=== PATIENT | female | born 1970 | race Caucasian/White ===

== ENCOUNTER → 2022-01-03 10:55 | Outpatient (CLI) | payer OTHER, SELFPAY ==
[2022-01-03 12:30] LABS: Influenza A - CEPHEID Flu A NEGATIVE (NEGATIVE); Influenza B - CEPHEID Flu B NEGATIVE (NEGATIVE)
== END ==
PROVIDERS: Visit Provider Physician Assistant
DX: R50.9 Fever, unspecified (principal); R05.9 Cough, unspecified
CPT/HCPCS: 87502

== ENCOUNTER 2022-01-04 21:53 | Emergency (ER) | payer OTHER, SELFPAY ==
[2022-01-04 22:25] VITALS: BP 136/60; PULSE 73; RESP 16; TEMP 37.2; O2SAT 65; BMI 42.0
--- NOTE | 2022-01-05 00:26 | ED.SKABFB ---
HPI - Skin/Abscess/Foreign Bdy General Chief complaint: Skin/Abscess/Foreign Body Stated complaint: thinks she has a tick in her rt arm Time Seen by Provider: 01/05/22 00:18 Source: patient Mode of arrival: Ambulatory Limitations: no limitations History of Present Illness HPI narrative: Patient here for evaluation of a possible tick on her right forearm. was able to put a Band-Aid over the skin and remove. She brought it with her. In addition, in the past month she has had spotty lesions on her forearms. Has not seen family doctor or clinical faculty for this. Related Data Previous Rx's Medication Instructions Recorded benzonatate 200 mg capsule 200 mg PO BID PRN cough 7 days #14 01/03/22 caps Allergies Allergy/AdvReac Type Severity Reaction Status Date / Time meperidine [From Demerol] Allergy Mild Hallucinati Verified 01/03/22 10:32 ng Review of Systems Review of Systems Narrative: GENERAL: Denies chills, fatigue, malaise, fever, sweats. HEENT: Denies sinus pain, ear pain, sore throat RESPIRATORY: Denies dyspnea, cough CARDIOVASCULAR: Denies chest pain, palpitations GASTROINTESTINAL: Denies nausea, vomiting, abdominal pain : Denies dysuria, frequency, hematuria MUSCULOSKELETAL: denies muscle or bony pain SKIN: Denies rash, positive for foreign body and skin lesions NEUROLOGIC: Denies weakness, numbness ROS Unobtainable: All systems reviewed & are unremarkable except as noted in HPI and below Patient History Social History Smoking Status: Never smoker Smoking Status: Never smoker Substance Use Type: does not use Exam Narrative Exam Narrative: GENERAL: in no distress, not toxic not dyspneic HEAD: Normocephalic. EXTREMITIES: No gross deformities. BACK: No flank tenderness. NEURO: AOx4. SKIN: Warm and dry, scattered small punctate ulcerations of the skin on the forearms. It is dry. No oozing. No surrounding erythema. The small punctate item that was removed from the skin with Band-Aid from was examined. Used forceps and scissors to examine item. It is a small pebble. It is hardened. It is not a tick. It is not a scab. PSYCH: Not anxious, is cooperative Initial Vital Signs Initial Vital Signs: Vital Signs Temperature 98.9 F 01/04/22 22:25 Pulse Rate 73 01/04/22 22:25 Respiratory Rate 16 01/04/22 22:25 Blood Pressure 136/60 01/04/22 22:25 Pulse Oximetry 65 L 01/04/22 22:25 Oxygen Delivery Method 01/04/22 22:25 Course Course Course Narrative: No new issues during course of stay Reevaluation(s) Reevaluation #1: I reviewed results with patient and . This is a small pebble that was picked off the skin with the Band-Aid. Reviewed with patient needs to follow-up with dermatology regarding the skin lesions. Patient is in no distress. No blood work indicated this time. No prescriptions indicated this time. Vital Signs Vital signs: Vital Signs - 8 hr 01/04/22 22:25 01/05/22 00:33 Temperature 98.9 F Pulse Rate 73 78 Respiratory Rate 16 16 Blood Pressure 136/60 138/77 Pulse Oximetry 65 L 97 Oxygen Delivery Method Room Air Room Air MDM - Skin/Abscess/Foreign Bdy Differential Diagnosis Differential diagnosis: Likely other (Skin scabs/foreign body/tick) MDM Narrative Medical decision making narrative: Appropriate for discharge home. Examination item that was removed off the skin is a small pebble. Referral given for patient to see family doctor and to get referral for Dermatology regarding the skin lesions that have been there for over a month. No blood worker prescriptions indicated. Return precautions reviewed with patient. Not toxic at discharge Discharge Plan Departure Patient Disposition: Home Clinical Impression: Foreign body of skin of right forearm Instructions: DI for Rash Activity Restrictions/Additional Instructions: See family doctor in a week for re-evaluation and referral for Dermatology regarding skin lesions you are experiencing. Do not pick at the skin. Call provided primary care referral phone number to establish family doctor. Call [phone]. Return if worsening questions or concerns Prescriptions: No Action benzonatate 200 mg capsule 200 mg PO BID PRN (Reason: cough) 7 Days Qty: 14 0RF Visit Report Forms: Patient Portal/API
[2022-01-05 00:33] VITALS: BP 138/77; PULSE 78; RESP 16; O2SAT 97
== END 2022-01-05 00:34 | disposition home or self-care (01) ==
PROVIDERS: Emergency Provider Emergency Medicine
DX: S50.851A Superficial foreign body of right forearm, initial encounter (principal)
CPT/HCPCS: 99281

== ENCOUNTER 2022-09-01 11:42 | Emergency (ER) | payer OTHER, SELFPAY ==
[2022-09-01 11:45] VITALS: BP 169/73; PULSE 90; RESP 16; TEMP 36.6; O2SAT 98; BMI 40.7
[2022-09-01] MEDS: TET,DIPH,PERTUSS(ACELL),VAC/PF 0.5 ML SYRINGE IM (12:35)
[2022-09-01] MEDS: KETOROLAC 10 MG TABLET PO (13:02)
[2022-09-01] MEDS: LIDOCAINE 2% INJ SDV 5ML 5 ML INJ (13:03)
[2022-09-01] MEDS: ACETAMINOPHEN 325 MG TABLET 975 MG PO (13:03)
[2022-09-01] MEDS: PANTOPRAZOLE DR 20 MG TABLET PO (13:05)
--- NOTE | 2022-09-01 13:11 | ED_ITS ---
HPI - Wound/Laceration <SANJEEV Arambula - Last Filed: 09/01/22 14:35> General Chief Complaint: Wound/Laceration Stated Complaint: sharp piece of metal fell on wrist/ bleeding Time Seen by Provider: 09/01/22 12:07 Source: patient Mode of arrival: Ambulatory History of Present Illness HPI narrative: This is a 52-year-old female presents to the emergency department with her after she bumped a heavy sink a were installing and fell down onto her left wrist on the volar aspect. She has 2 small skin injuries, 1 is a 0.5 avulsion flap and is superficial, without bleeding with a small abrasion, the other is approximately 1 cm laceration over the medial volar wrist. She does not remember when her last tetanus was, denies any profuse bleeding, has it wrapped up but was very anxious about the injury. Related Data Previous Rx's Medication Instructions Recorded hydrocodone 5 mg-acetaminophen 325 1 tab PO TID PRN pain #10 tabs 09/01/22 mg tablet mupirocin 2 % topical ointment 1 applic topical DAILY #15 grams 09/01/22 Allergies Allergy/AdvReac Type Severity Reaction Status Date / Time meperidine [From Demerol] Allergy Mild Hallucinati Verified 09/01/22 11:49 ng Review of Systems <SANJEEV Arambula - Last Filed: 09/01/22 14:35> Review of Systems ROS Unobtainable: All systems reviewed & are unremarkable except as noted in HPI and below Patient History <SANJEEV Arambula - Last Filed: 09/01/22 14:35> Social History Smoking Status: Never smoker Smoking Status: Never smoker Substance Use Type: does not use Exam <SANJEEV Arambula - Last Filed: 09/01/22 14:35> Narrative Exam Narrative: Reviewed vitals signs and nursing notes. General: cooperative, comfortable, in no acute distress, well groomed MSK: moves all extremities, neurovascularly intact, no weakness, normal tone, left wrist with 2 small skin wounds, 1 of them approximately 1 cm, no visible foreign body, tendon injury vascular injury, or mobility deficit. She has 2 small wounds on the volar aspect of the left wrist, superficial avulsion with abrasion and the small laceration. This will be repaired with 2 sutures patient able to make okay sign, touch her pinky, full range of motion of all her fingers and her wrist without deficit, radial pulses 2+ and cap refills brisk Skin: brisk capillary refill, without pallor or erythema Neuro: normal speech and cognition, A&O x3, ambulatory, clear speech Psych: mental status is grossly normal, congruent mood, normal affect, pleasant and cooperative Initial Vital Signs Initial Vital Signs: Vital Signs Temperature 98 F 09/01/22 11:45 Pulse Rate 90 09/01/22 11:45 Respiratory Rate 16 09/01/22 11:45 Blood Pressure 169/73 H 09/01/22 11:45 Pulse Oximetry 98 09/01/22 11:45 Oxygen Delivery Method 09/01/22 11:45 <Juan David Concepcion DO - Last Filed: 09/01/22 14:41> Initial Vital Signs Initial Vital Signs: Vital Signs Temperature 98 F 09/01/22 11:45 Pulse Rate 90 09/01/22 11:45 Respiratory Rate 16 09/01/22 11:45 Blood Pressure 169/73 H 09/01/22 11:45 Pulse Oximetry 98 09/01/22 11:45 Oxygen Delivery Method 09/01/22 11:45 Procedures <SANJEEV Arambula - Last Filed: 09/01/22 14:35> Laceration Repair Laceration 1: Site: upper extremity (wrist) Side (If applicable): left Size (cm): 1 Description: linear Depth: simple, single layer Local Anesthetic: lidocaine 1% Amount of anesthesia used (mL): 1 Pre-repair: wound explored, irrigated extensively and deep structures intact Skin layer closed with: nylon Skin layer suture size: 6-0 Number of sutures: 2 Technique: simple, interrupted and horizontal mattress Course <SANJEEV Arambula - Last Filed: 09/01/22 14:35> Orders Ordered: ED Orders 09/01/22 13:12 XR wrist LT 2V Stat Discontinued Medications Acetaminophen (Acetaminophen 325 Mg Tablet) 975 mg PO NOW ONE Stop: 09/01/22 12:48 Last Admin: 09/01/22 13:03 Dose: 975 mg Documented By: LAURA Bacitracin (Bacitracin Oint 0.9 Gm Pckt) 1 applic TOP NOW ONE Stop: 09/01/22 13:12 Last Admin: 09/01/22 13:44 Dose: 1 applic Documented By: ELBA Diphtheria/Tetanus/Acell Pertussis (Tet,Diph,Pertuss(Acell),Vac/Pf 0.5 Ml Syringe) 0.5 ml IM .ONCE ONE Stop: 09/01/22 12:09 Last Admin: 09/01/22 12:35 Dose: 0.5 ml Documented By: ENID Ketorolac Tromethamine (Ketorolac 10 Mg Tablet) 10 mg PO NOW ONE Stop: 09/01/22 12:48 Last Admin: 09/01/22 13:02 Dose: 10 mg Documented By: LAURA Lidocaine HCl (Lidocaine 2% Inj Sdv 5ml) 5 ml INJ INTRA-OP ONE Stop: 09/01/22 12:47 Last Admin: 09/01/22 13:03 Dose: 5 ml Documented By: LAURA Lidocaine HCl (Lidocaine 1% 20 Ml) 20 ml INJ INTRA-OP ONE Stop: 09/01/22 12:47 Last Admin: 09/01/22 13:05 Dose: Not Given Documented By: LAURA Pantoprazole Sodium (Pantoprazole Dr 20 Mg Tablet) 20 mg PO NOW ONE Stop: 09/01/22 13:02 Last Admin: 09/01/22 13:05 Dose: 20 mg Documented By: LAURA Vital Signs Vital signs: Vital Signs - 8 hr 09/01/22 11:45 09/01/22 14:15 Temperature 98 F Pulse Rate 90 72 Respiratory Rate 16 16 Blood Pressure 169/73 H 148/78 H Pulse Oximetry 98 99 Oxygen Delivery Method Room Air Room Air <Juan David Concepcion, - Last Filed: 09/01/22 14:41> Orders Ordered: ED Orders 09/01/22 13:12 XR wrist LT 2V Stat Discontinued Medications Acetaminophen (Acetaminophen 325 Mg Tablet) 975 mg PO NOW ONE Stop: 09/01/22 12:48 Last Admin: 09/01/22 13:03 Dose: 975 mg Documented By: LAURA Bacitracin (Bacitracin Oint 0.9 Gm Pckt) 1 applic TOP NOW ONE Stop: 09/01/22 13:12 Last Admin: 09/01/22 13:44 Dose: 1 applic Documented By: ELBA Diphtheria/Tetanus/Acell Pertussis (Tet,Diph,Pertuss(Acell),Vac/Pf 0.5 Ml Syringe) 0.5 ml IM .ONCE ONE Stop: 09/01/22 12:09 Last Admin: 09/01/22 12:35 Dose: 0.5 ml Documented By: ENID Ketorolac Tromethamine (Ketorolac 10 Mg Tablet) 10 mg PO NOW ONE Stop: 09/01/22 12:48 Last Admin: 09/01/22 13:02 Dose: 10 mg Documented By: LAURA Lidocaine HCl (Lidocaine 2% Inj Sdv 5ml) 5 ml INJ INTRA-OP ONE Stop: 09/01/22 12:47 Last Admin: 09/01/22 13:03 Dose: 5 ml Documented By: LAURA Lidocaine HCl (Lidocaine 1% 20 Ml) 20 ml INJ INTRA-OP ONE Stop: 09/01/22 12:47 Last Admin: 09/01/22 13:05 Dose: Not Given Documented By: LAURA Pantoprazole Sodium (Pantoprazole Dr 20 Mg Tablet) 20 mg PO NOW ONE Stop: 09/01/22 13:02 Last Admin: 09/01/22 13:05 Dose: 20 mg Documented By: LAURA Vital Signs Vital signs: Vital Signs - 8 hr 09/01/22 11:45 09/01/22 14:15 Temperature 98 F Pulse Rate 90 72 Respiratory Rate 16 16 Blood Pressure 169/73 H 148/78 H Pulse Oximetry 98 99 Oxygen Delivery Method Room Air Room Air MDM - Wound/Laceration <Ruth Baptiste [facility] - Last Filed: 09/01/22 14:35> Imaging Data Extremity x-ray #1: Radiologist's Impression: PROCEDURE:? XR WRIST LT 2V ? INDICATIONS: crush injury w/ lac ? TECHNIQUE:? 3 views of the wrist were acquired.? ? COMPARISON:? None. ? FINDINGS:? ? Bones:? No fractures or dislocations.? No suspicious bony lesions.? First carpometacarpal joint space narrowing and subchondral sclerosis ? Soft tissues:? No suspicious soft tissue calcifications.? ? IMPRESSION:? 1st [facility] osteoarthritis.? No fracture ? ? ? Approved by: Dayton Denton M.D. on 09/01/2022 at 13:21? MDM Narrative Medical decision making narrative: Multiple etiologies for patient's symptoms considered including, but not limited to: Vascular injury, wrist fracture, tendon injury, foreign body, laceration, avulsion laceration This is a 52-year-old female presents to the emergency department with her after she bumped a heavy sink a were installing and fell down onto her left wrist on the volar aspect. She has 2 small skin injuries, 1 is a 0.5 av ulsion flap and is superficial, without bleeding with a small abrasion, the other is approximately 1 cm laceration over the medial volar wrist. Imaging reviewed: Left wrist x-ray without foreign body, shows CMC osteoarthritis, she is nontender over this area today, no fractures to the wrist bones. Patient's tetanus was updated today, wound was cleansed with normal saline prior to closure, no complications, she has 2 sutures to this wound, 1 is horizontal mattress, the other was a simple sutures with good wound edge approximation. Patient's symptoms improved over duration of stay with above-stated therapies. Findings and discharge diagnosis discussed with patient/family followed by verbalization of understanding Return precautions discussed with patient/family whom verbalize understanding of diagnosis and plan Discharge Plan Departure Patient Disposition: Home Clinical Impression: Laceration Crushing injury of left wrist Qualifiers: Encounter type: initial encounter Qualified Code(s): S67.32XA - Crushing injury of left wrist, initial encounter Instructions: Wrist Sprain, DI for Laceration Repair Activity Restrictions/Additional Instructions: *You have been diagnosed with crush injury to your left wrist without evidence of fracture, joint space changes or foreign body. Sorry that this happened, I hope that your think is okay. Congratulations on your new kitchen, please continue with ice, elevate and rest, apply topical antibiotic ointment once or twice daily after gentle cleanser, try to avoid anything that will sting on the abrasion. Okay to use hydrocodone instead of NSAIDs for pain but please take MiraLax with this of the you do not become constipated. Follow-up at [facility] if you have worsening pain or range of motion changes. Try to avoid exacerbating this injury. Your stitches can come out in 7 days. *What to do: *Please continue to take your regular medications as directed. [x ] New medication prescriptions sent to your pharmacy: [[facility] ] [ ] New medication written as a paper prescription [ ] No new medications given *Please follow up with your primary care provider in 2-3 days, call for an appointment. Let them know you were seen in the Emergency Department and that we asked that you be seen for follow-up. We will electronically transmit a record of today's note if your PCP is in our system *If you do not have a primary care provider please contact [phone] to establish care with one of the [facility] primary care providers. *Return to Emergency Department if you should have any new, worsening, or concerning symptoms, such as [fever greater than 101F, chills, worsening pain, persistent vomiting or other bothersome symptoms]. Prescriptions: New hydrocodone-acetaminophen 5-325 mg tablet 1 tab PO TID PRN (Reason: pain) Qty: 10 0RF mupirocin 2 % ointment 1 applic topical DAILY Qty: 15 0RF Referrals: [facility] [Provider Group] Stand Alone Forms: Patient Portal/API <Juan David Concepcion, DO - Last Filed: 09/01/22 14:41> Cosign ED Attending Cosignature Attestation: Dr Concepcion Co-Sign Statement: I was available for consultation during this patient's emergency department visit. This chart is signed by myself for administrative purposes only. I did not have direct contact with this patient during this visit. They were seen independently by the APC.
--- NOTE | 2022-09-01 13:12 | DI.RAD.S_ITS ---
PROCEDURE: XR WRIST LT 2V INDICATIONS: crush injury w/ lac TECHNIQUE: 3 views of the wrist were acquired. COMPARISON: None. FINDINGS: Bones: No fractures or dislocations. No suspicious bony lesions. First carpometacarpal joint space narrowing and subchondral sclerosis Soft tissues: No suspicious soft tissue calcifications. IMPRESSION: 1st [facility] osteoarthritis. No fracture Approved by: Dayton Denton M.D. on 09/01/2022 at 13:21
[2022-09-01] MEDS: BACITRACIN OINT 0.9 GM PCKT 1 APPLIC TOP (13:44)
--- NOTE | 2022-09-01 14:13 | PC.NURSE ---
declined wrist splint. provider aware.
[2022-09-01 14:15] VITALS: BP 148/78; PULSE 72; RESP 16; O2SAT 99
--- NOTE | 2022-09-01 14:15 | PC.NURSE ---
Jerica Baptiste perforned wound care and one suture to puncture wound.
== END 2022-09-01 14:15 | disposition home or self-care (01) ==
PROVIDERS: Emergency Provider Nurse Practitioner Critical Care Medicine
DX: S61.512A Laceration without foreign body of left wrist, initial encounter (principal); S67.32XA Crushing injury of left wrist, initial encounter; W20.8XXA Other cause of strike by thrown, projected or falling object, initial encounter; Z23 Encounter for immunization
CPT/HCPCS: 12001; 73100; 90471; 99283; 99284; 90715

== ENCOUNTER 2023-03-13 08:58 | Emergency (ER) | payer OTHER, SELFPAY ==
[2023-03-13 09:02] VITALS: BP 128/86; PULSE 100; RESP 15; TEMP 36.6; O2SAT 96; BMI 42.5
[2023-03-13 09:42] VITALS: BP 141/79; PULSE 94; O2SAT 95
[2023-03-13 10:00] VITALS: BP 120/74; PULSE 84; O2SAT 94
[2023-03-13 10:03] LABS: Add Manual Diff / Slide Review NO; Basophils Absolute Auto 0 /uL (0-100); Basophils Percent Auto 0.4 % (0-2); Eosinophils Absolute Auto 100 /uL (0-450); Eosinophils Percent Auto 1.2 % (2-4); Hematocrit 39.4 % (36-46); Hemoglobin 13.4 g/dL (12.0-16.0); Lymphocytes Absolute Auto 1600 /uL (1100-4500); Mean Corpuscular HGB Conc 33.9 % (30-36); Mean Corpuscular Hemoglobin 27.8 PG (26-34); Monocytes Absolute Auto 600 /uL (0-900); Monocytes Percent Auto 7.1 % (3-14); Neutrophils Absolute Auto 6000 /uL (1500-7000); Neutrophils Percent Auto 72.3 % (50-75); Platelet Count 234 X10^3/uL (150-400); Red Blood Cell Count 4.81 X10^6/uL (4.0-5.2); White Blood Cell Count 8.3 X10^3/uL (4.5-11.0)
--- NOTE | 2023-03-13 10:05 | ED.FEMALEGU ---
HPI - Female Genitourinary General Chief complaint: Urogenital-Female Stated complaint: poss bladder infection, pain when urinating Time Seen by Provider: 03/13/23 09:44 Source: patient Mode of arrival: Ambulatory History of Present Illness HPI Narrative: Patient is a 53-year-old female history of hyperlipidemia not on medications presenting today with what she thinks is a UTI and possible kidney infection. She is had painful frequent urination it has been ongoing for a few days she started having significant right flank pain and lower back pain yesterday. No nausea or vomiting. Pain does not come and go in waves. She is not had any fever. He denies any shortness of breath or chest pain. No prior history of kidney stones Related Data Previous Rx's Medication Instructions Recorded hydrocodone 5 mg-acetaminophen 325 1 tab PO TID PRN pain #10 tabs 09/01/22 mg tablet mupirocin 2 % topical ointment 1 applic topical DAILY #15 grams 09/01/22 ciprofloxacin HCl 500 mg tablet 500 mg PO BID #20 tabs 03/13/23 (Cipro) hydrocodone 5 mg-acetaminophen 325 1 tab PO Q6H PRN pain #10 tabs 03/13/23 mg tablet metronidazole 500 mg tablet 500 mg PO Q8H 7 days #30 tabs 03/13/23 Allergies Allergy/AdvReac Type Severity Reaction Status Date / Time meperidine [From Demerol] Allergy Mild Hallucinati Verified 03/13/23 09:04 ng Review of Systems Review of Systems ROS Unobtainable: All systems reviewed & are unremarkable except as noted in HPI and below Patient History alcohol intake frequency: holidays/special occasions only Substance Use Type: does not use Exam Initial Vital Signs Initial Vital Signs: Vital Signs Temperature 97.9 F 03/13/23 09:02 Pulse Rate 100 H 03/13/23 09:02 Respiratory Rate 15 03/13/23 09:02 Blood Pressure 128/86 03/13/23 09:02 Pulse Oximetry 96 03/13/23 09:02 Oxygen Delivery Method Room Air 03/13/23 09:02 GENERAL: Alert well-appearing 53-year-old female and in no acute distress. HEENT: Head atraumatic,EOMI, pupils reactive, face symmetric, moist mucous membranes CARDIOVASCULAR: Regular rate and rhythm without murmurs, rubs or gallops. RESPIRATORY: Breath sounds equal bilaterally, no wheezes rales or rhonchi. ABDOMEN: Soft, nontender. Normoactive bowel sounds all 4 quadrants. No guarding or rebound. BACK: Lower lumbar pain : No CVA tenderness EXTREMITIES: Normal range of motion, no clubbing or edema. Neurovascularly intact NEUROLOGICAL: Alert and oriented x4.Normal gait and speech. SKIN: Warm, dry, no laceration, no petechiae, no rashes or lesions. Course Orders Ordered: ED Orders 03/13/23 10:39 CT abdomen pelvis w con Stat Discontinued Medications Ketorolac Tromethamine (Ketorolac 30 Mg/Ml Vial) 15 mg IV NOW ONE Stop: 03/13/23 10:18 Last Admin: 03/13/23 10:27 Dose: 15 mg Documented By: KALEY Ondansetron HCl (Ondansetron 4 Mg/2 Ml Inj) 4 mg IV NOW PRN PRN Reason: Nausea And Vomiting Vital Signs Vital signs: Vital Signs - 8 hr 03/13/23 12:12 Pulse Rate 84 Respiratory Rate 16 Blood Pressure 139/69 Pulse Oximetry 97 Oxygen Delivery Method Room Air MDM - Female Genitourinary Lab Data 03/13/23 09:47 03/13/23 09:47 Labs: Lab Results 03/13/23 03/13/23 03/13/23 Range/Units 09:12 09:47 09:47 WBC 8.3 (4.5-11.0) X10^3/uL RBC 4.81 (4.0-5.2) X10^6/uL Hgb 13.4 (12.0-16.0) g/dL Hct 39.4 (36-46) % MCV 82.0 (80-100) fL MCH 27.8 (26-34) PG MCHC 33.9 (30-36) % RDW 14.0 (11.6-14.8) % Plt Count 234 (150-400) X10^3/uL Neut % (Auto) 72.3 (50-75) % Lymph % (Auto) 19.0 L (25-40) % [place] % (Auto) 7.1 (3-14) % Eos % (Auto) 1.2 L (2-4) % Baso % (Auto) 0.4 (0-2) % Neut # (Auto) 6000 (4456-2699) /uL Lymph # (Auto) 1600 (2364-4761) /uL [place] # (Auto) 600 (0-900) /uL Eos # (Auto) 100 (0-450) /uL Baso # (Auto) 0 (0-100) /uL Sodium 138 (137-145) mmol/L Potassium 4.0 (3.4-5.1) mmol/L Chloride 102 (98-107) mmol/L Carbon Dioxide 26 (22-32) mmol/L BUN 12 (7-17) mg/dL Creatinine 0.67 (0.52-1.04) mg/dL Estimated GFR > 60 (>60) mL/min BUN/Creatinine Ratio 17.9 (6-22) Glucose 115 H (70-100) mg/dL Calcium 9.6 (8.4-10.2) mg/dL Total Bilirubin 0.8 (0.2-1.3) mg/dL AST 41 H (14-36) IU/L ALT 47 H (<35) IU/L Alkaline Phosphatase 129 H (38-126) U/L Total Protein 8.4 H (6.3-8.2) g/dL Albumin 4.6 (3.5-5.0) g/dL Globulin 3.8 (1.7-4.1) g/dL Albumin/Globulin Ratio 1.2 (1.0-2.8) Lipase 94 (23-300) U/L Urine Color Yellow Urine Appearance Cloudy Urine pH 5.0 (4.5-8.0) Ur Specific [place] >=1.030 H (1.000-1.035) Urine Protein Negative (Negative) Urine Glucose (UA) Negative (Negative) g/dL Urine Ketones Negative (NEGATIVE) Urine Occult Blood Negative (Negative) Urine Nitrate Negative (Negative) Urine Bilirubin Negative (NEGATIVE) Urine Urobilinogen 1.0 (0.2) E.U./dL Ur Leukocyte Esterase Negative (NEGATIVE) Urine RBC None seen (0-5/HPF) Urine WBC None seen (0-5/HPF) Ur Squamous Epith Cells 10-30 /hpf H (0-5/HPF) Amorphous Sediment 4+ Urine Bacteria None seen (None) Ur Culture Indicated? Cult not indicated Urine Dip Bedside Urine Glucose Negative Bedside Urine Bilirubin - Negative Bedside Urine Ketone - Negative Urine Specific [place] 1.030 Bedside Urine Occult Blood - Negative Bedside Urine pH 6.0 Bedside Urine Protein - Negative Bedside Urine Urobilinogen - Negative Bedside Urine Nitrite - Negative Bedside Urine Leukocytes - Negative Esterase Imaging Data CT scan - abdomen/pelvis: Radiologist's Impression: PROCEDURE:? CT ABDOMEN PELVIS W CON ? INDICATIONS:? right flank pain ? TECHNIQUE:? After the administration of intravenous contrast, axial sections acquired from the lung bases to the pubic symphysis.? Coronal and sagittal reformats were performed.? For radiation dose reduction, the following was used:? automated exposure control, adjustment of mA and/or kV according to patient size.? ? COMPARISON:? None. ? FINDINGS:? Image quality:? Excellent.? ? Lung bases:? Unremarkable. Heart:? No significant findings. ? ABDOMEN: Liver:? Very mild diffuse hepatic steatosis.? ? Gallbladder:? Unremarkable.? ? Biliary ducts:? Unremarkable.? ? Pancreas:? Unremarkable.? ? Spleen:? Unremarkable.? ? Adrenal Glands:? Unremarkable.? ? Kidneys and Ureters:? Unremarkable.? ? ? Stomach and Bowel:? Scattered sigmoid diverticulosis with acute uncomplicated sigmoid diverticulitis.? Mild associated diffuse wall thickening.? Inflammatory change in the adjacent fat.? No free air or abscess. Peritoneum:? No abnormal intraperitoneal fluid.? No free air.? ? Ventral Wall: ? No hernias.? Abdominal Nodes:? No retroperitoneal or mesenteric adenopathy by size criteria.? Vessels:? Aorta and inferior vena cava are normal in size.? ? PELVIS: Pelvic Organs:? Unremarkable.? ? Bladder:? Unremarkable.? ? Pelvic Nodes: No enlarged lymph nodes.? Miscellaneous: No hernias are seen. ? ? ? Bones:? Lumbar degenerative change with canal stenosis at L2-L3. ? ? IMPRESSION:? ? 1. Mild uncomplicated sigmoid diverticulitis. ? 2. Lumbar degenerative change with canal stenosis at L2-L3. ? Comment:? If the patient has not had recent colonoscopy, would recommend nonemergent colonoscopy after symptoms resolve to exclude underlying lesion.? ? ? Dictated by: Rusty Malone M.D. on 03/13/2023 at 11:08 ? ? MDM Narrative Medical decision making narrative: Patient healthy 53-year-old female presents today with some UTI like symptoms but no evidence of UTI. She was having some right flank pain. Blood work is overall reassuring without significant leukocytosis were SANDI. CT shows mild non complicated diverticulitis which would explain some of her symptoms. There is no evidence of perforation or sepsis. Reasonable to treat as outpatient with antibiotics. Discharge Plan Departure Patient Disposition: Home Clinical Impression: Diverticulitis Instructions: DI for Diverticulitis Activity Restrictions/Additional Instructions: *You have been diagnosed with diverticulitis *What to do: At this time recommend low fiber diet until symptoms start improving. *Continue to take medications as directed Cipro 500 mg twice a day for 10 days Flagyl 500 mg 3 times a day for 10 days *Follow up with your primary care provider in 2-3 days or call [phone] *Return to ER if you should have increasing pain fever bloody stool or any new, worsening or concerning symptoms Prescriptions: New hydrocodone-acetaminophen 5-325 mg tablet 1 tab PO Q6H PRN (Reason: pain) Qty: 10 0RF metronidazole 500 mg tablet 500 mg PO Q8H 7 Days Qty: 30 0RF ciprofloxacin HCl [Cipro] 500 mg tablet 500 mg PO BID Qty: 20 0RF No Action hydrocodone-acetaminophen 5-325 mg tablet 1 tab PO TID PRN (Reason: pain) Qty: 10 0RF mupirocin 2 % ointment 1 applic topical DAILY Qty: 15 0RF Stand Alone Forms: Patient Portal/API
[2023-03-13 10:09] LABS: Chloride 102 mmol/L (98-107); HEMOLYSIS < 15 (0-50)
[2023-03-13 10:11] LABS: Alanine Aminotransferase 47 IU/L (<35); Albumin 4.6 g/dL (3.5-5.0); Albumin Globulin Ratio 1.2 (1.0-2.8); Alkaline Phosphatase 129 U/L (38-126); Aspartate Aminotransferase 41 IU/L (14-36); BUN Creatinine Ratio 17.9 (6-22); Bilirubin Total 0.8 mg/dL (0.2-1.3); Blood Urea Nitrogen 12 mg/dL (7-17); Calcium 9.6 mg/dL (8.4-10.2); Carbon Dioxide 26 mmol/L (22-32); Estimated Glomerular Filt Rate > 60 mL/min (>60); Globulin 3.8 g/dL (1.7-4.1); Glucose 115 mg/dL (70-100); Lipase 94 U/L (23-300); Sodium 138 mmol/L (137-145); Total Protein 8.4 g/dL (6.3-8.2)
[2023-03-13 10:22] LABS: Appearance Urine UA CLOUDY; Bilirubin Urine UA NEGATIVE (NEGATIVE); Color Urine UA YELLOW; Glucose Urine UA NEGATIVE (Negative); Ketones Urine UA NEGATIVE (NEGATIVE); Leukocyte Esterase Urine UA NEGATIVE (NEGATIVE); Nitrite Urine UA NEGATIVE (Negative); Occult Blood Urine UA NEGATIVE (Negative); Protein Urine UA NEGATIVE (Negative); Specific Gravity Urine UA >=1.030 (1.000-1.035)
[2023-03-13 10:26] LABS: Amorphous Sediment Urine 4+; Bacteria Urine None Seen; Culture Indicated Urine Cult Not Indicated; RBC Urine None Seen (0-5/HPF); Squamous Epithelial Cell Urine 10-30 /HPF (0-5/HPF); WBC Urine None Seen (0-5/HPF)
[2023-03-13] MEDS: KETOROLAC 30 MG/ML VIAL 15 MG IV (10:27)
[2023-03-13 10:30] VITALS: BP 121/69; PULSE 86; O2SAT 94
--- NOTE | 2023-03-13 10:39 | DI.CT.S_ITS ---
PROCEDURE: CT ABDOMEN PELVIS W CON INDICATIONS: right flank pain TECHNIQUE: After the administration of intravenous contrast, axial sections acquired from the lung bases to the pubic symphysis. Coronal and sagittal reformats were performed. For radiation dose reduction, the following was used: automated exposure control, adjustment of mA and/or kV according to patient size. COMPARISON: None. FINDINGS: Image quality: Excellent. Lung bases: Unremarkable. Heart: No significant findings. ABDOMEN: Liver: Very mild diffuse hepatic steatosis. Gallbladder: Unremarkable. Biliary ducts: Unremarkable. Pancreas: Unremarkable. Spleen: Unremarkable. Adrenal Glands: Unremarkable. Kidneys and Ureters: Unremarkable. Stomach and Bowel: Scattered sigmoid diverticulosis with acute uncomplicated sigmoid diverticulitis. Mild associated diffuse wall thickening. Inflammatory change in the adjacent fat. No free air or abscess. Peritoneum: No abnormal intraperitoneal fluid. No free air. Ventral Wall: No hernias. Abdominal Nodes: No retroperitoneal or mesenteric adenopathy by size criteria. Vessels: Aorta and inferior vena cava are normal in size. PELVIS: Pelvic Organs: Unremarkable. Bladder: Unremarkable. Pelvic Nodes: No enlarged lymph nodes. Miscellaneous: No hernias are seen. Bones: Lumbar degenerative change with canal stenosis at L2-L3. IMPRESSION: 1. Mild uncomplicated sigmoid diverticulitis. 2. Lumbar degenerative change with canal stenosis at L2-L3. Comment: If the patient has not had recent colonoscopy, would recommend nonemergent colonoscopy after symptoms resolve to exclude underlying lesion. Dictated by: Rusty Malone M.D. on 03/13/2023 at 11:08 Approved by: Rusty Malone M.D. on 03/13/2023 at 11:14
[2023-03-13 12:12] VITALS: BP 139/69; PULSE 84; RESP 16; O2SAT 97
== END 2023-03-13 12:12 | disposition home or self-care (01) ==
PROVIDERS: Emergency Provider Emergency Medicine
DX: K57.92 Diverticulitis of intestine, part unspecified, without perforation or abscess without bleeding (principal); M54.50 Low back pain, unspecified
CPT/HCPCS: 36415; 74177; 80053; 81001; 81003; 83690; 85025; 96374; 99284; J1885

== ENCOUNTER 2023-10-18 15:51 | Emergency (ER) | payer OTHER, SELFPAY ==
[2023-10-18 16:20] VITALS: BP 151/69; PULSE 90; RESP 18; TEMP 36.4; O2SAT 97; BMI 43.4
[2023-10-18 17:34] LABS: Add Manual Diff / Slide Review NO; Basophils Absolute Auto 100 /uL (0-100); Basophils Percent Auto 1.4 % (0-2); Eosinophils Absolute Auto 100 /uL (0-450); Eosinophils Percent Auto 1.5 % (2-4); Hematocrit 42.7 % (36-46); Hemoglobin 14.4 g/dL (12.0-16.0); Lymphocytes Absolute Auto 2500 /uL (1100-4500); Mean Corpuscular HGB Conc 33.7 % (30-36); Mean Corpuscular Hemoglobin 28.1 PG (26-34); Mean Corpuscular Volume 83.5 fL (80-100); Monocytes Absolute Auto 500 /uL (0-900); Monocytes Percent Auto 6.6 % (3-14); Neutrophils Absolute Auto 4600 /uL (1500-7000); Neutrophils Percent Auto 58.5 % (50-75); Platelet Count 266 X10^3/uL (150-400); Red Blood Cell Count 5.11 X10^6/uL (4.0-5.2); Red Cell Distribution Width 14.2 % (11.6-14.8); White Blood Cell Count 7.8 X10^3/uL (4.5-11.0)
[2023-10-18 18:08] LABS: Alanine Aminotransferase 36 IU/L (<35); Albumin 4.6 g/dL (3.5-5.0); Albumin Globulin Ratio 1.1 (1.0-2.8); Alkaline Phosphatase 119 U/L (38-126); Aspartate Aminotransferase 44 IU/L (14-36); BUN Creatinine Ratio 20.3 (6-22); Bilirubin Total 0.7 mg/dL (0.2-1.3); Blood Urea Nitrogen 13 mg/dL (7-17); Calcium 9.4 mg/dL (8.4-10.2); Carbon Dioxide 28 mmol/L (22-32); Chloride 105 mmol/L (98-107); Estimated Glomerular Filt Rate > 60 mL/min (>60); Globulin 4.1 g/dL (1.7-4.1); Glucose 96 mg/dL (70-100); HEMOLYSIS 40 (0-50); Lipase 143 U/L (23-300); Potassium 4.5 mmol/L (3.4-5.1); Sodium 137 mmol/L (137-145); Total Protein 8.7 g/dL (6.3-8.2)
--- NOTE | 2023-10-18 19:40 | DI.CT.S_ITS ---
PROCEDURE: CT ABDOMEN PELVIS W CON INDICATIONS: RLQ pain TECHNIQUE: After the administration of intravenous contrast, axial sections acquired from the lung bases to the pubic symphysis. Coronal and sagittal reformats were performed. For radiation dose reduction, the following was used: automated exposure control, adjustment of mA and/or kV according to patient size. COMPARISON: [facility], CT, CT ABDOMEN PELVIS W CON, 03/13/2023, 10:39. FINDINGS: Image quality: Diagnostic. Lower Chest: No significant findings. ABDOMEN: Liver: No solid mass. Cystic lesion within the left hepatic lobe is stable. Gallbladder: No radiopaque gallstones or wall thickening. Biliary ducts: No biliary dilation. Pancreas: No ductal dilation. Spleen: Size is within normal limits. Adrenal Glands: No adrenal nodules. Kidneys and Ureters: No hydronephrosis. No solid mass. No complex renal cystic lesion which requires follow up. Stomach and Bowel: Normal colonic caliber, without significant wall thickening. Diverticulosis without evidence of acute diverticulitis. Peritoneum: No abnormal intraperitoneal fluid. No free air. Ventral Wall: No significant ventral hernia. Abdominal Nodes: No retroperitoneal or mesenteric adenopathy by size criteria. Vessels: Aorta and inferior vena cava are normal in size. PELVIS: Pelvic Organs: Unremarkable. Bladder: No bladder wall thickening, accounting for underdistention. Pelvic Nodes: No enlarged lymph nodes. Miscellaneous: No inguinal hernias are seen. Bones: No aggressive osseous abnormality. Multilevel degenerative changes of the spine. IMPRESSION: 1. No acute findings within the abdomen or pelvis to explain patient's symptoms. 2. Diverticulosis without evidence of acute diverticulitis. Dictated by: Arnoldo Saez M.D. on 10/18/2023 at 20:55 Approved by: Arnoldo Saez M.D. on 10/18/2023 at 20:59
[2023-10-18 19:43] VITALS: BP 124/72; PULSE 83; RESP 18; O2SAT 99
[2023-10-18] MEDS: KETOROLAC 30 MG/ML VIAL 15 MG IV (20:12)
[2023-10-18 21:09] VITALS: BP 123/74; PULSE 73; RESP 16; O2SAT 96
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
[2023-10-18] MEDS: CYCLOBENZAPRINE 10 MG PREPACK 1 BOTTLE MISC (22:25)
[2023-10-18 22:29] VITALS: BP 121/67; PULSE 73; RESP 18; TEMP 36.7; O2SAT 96
== END 2023-10-18 22:30 | disposition home or self-care (01) ==
PROVIDERS: Emergency Medicine; Emergency Provider Emergency Medicine
DX: M54.50 Low back pain, unspecified (principal); R10.31 Right lower quadrant pain
CPT/HCPCS: 36415; 74177; 80053; 81003; 83690; 85025; 93005; 96374; 99284; J1885; Q9967

== ENCOUNTER 2024-04-19 06:10 | Emergency (ER) | payer OTHER, SELFPAY ==
[2024-04-19 06:24] VITALS: BP 142/84; PULSE 100; RESP 18; TEMP 36.6; O2SAT 97; BMI 43.4
[2024-04-19 06:31] VITALS: PULSE 81; O2SAT 97
[2024-04-19 06:32] VITALS: BP 156/84; PULSE 81; O2SAT 96
--- NOTE | 2024-04-19 06:33 | ED_ITS ---
HPI - Abdominal Pain General Chief Complaint: Back Pain/Injury Stated Complaint: back pain, lt side Time Seen by Provider: 04/19/24 06:14 Source: patient Mode of arrival: Ambulatory History of Present Illness HPI narrative: 54-year-old female complains of left lower back pain radiating to the left gluteal buttock region, now for 5 days. No injury or fall or new activity recalled. No numbness or weakness to either leg, nor to perineal region. No incontinence of urine or stool. She has had kidney infections in the past, but higher up back pain, and is not having painful urination or frequency of urination at this time. No fevers or chills. No prior back surgery interventions or injections. Related Data Previous Rx's Medication Instructions Recorded mupirocin 2 % topical ointment 1 applic topical DAILY #15 grams 09/01/22 hydrocodone 5 mg-acetaminophen 325 1 tab PO Q6H PRN pain #10 tabs 03/13/23 mg tablet cyclobenzaprine 5 mg tablet 5 mg PO TID PRN muscle spasm #10 10/18/23 tabs polyethylene glycol 3350 17 gram 17 g PO DAILY constipation #100 ea 11/14/23 oral powder packet (HealthyLax) cyclobenzaprine 10 mg tablet 10 mg PO TID #20 tabs 04/19/24 hydrocodone 5 mg-acetaminophen 325 1 tab PO Q6H PRN pain #14 tabs 04/19/24 mg tablet methylprednisolone 4 mg tablets in See Rx Instructions PO .COMPLEX 04/19/24 a dose pack (Medrol (Hong)) #21 ea naproxen 500 mg tablet 500 mg PO BID 7 days #14 tabs 04/19/24 Allergies Allergy/AdvReac Type Severity Reaction Status Date / Time meperidine [From Demerol] Allergy Mild Hallucinati Verified 11/14/23 09:30 ng Review of Systems Review of Systems Narrative: see HPI Patient History Medical History (Updated 04/19/24 @ 07:19 by Rigo Barrientos MD) Knee pain Plantar warts Acne Sleep apnea Seizure Headache Fractures (~2003) Chronic back pain (~1991) Carpal tunnel syndrome (~1990) Ankle pain Chicken pox (~1974) PCOS (polycystic ovarian syndrome) Ovarian cyst Irregular menstrual cycle Heavy menstrual period Hemorrhoid Diverticular disease Adenomatous polyp of colon First degree atrioventricular block Surgical History (Updated 12/06/23 @ 21:09 by Ameena Wetzel) Anesthesia History of knee surgery S/P dilatation and curettage (~2001) Social History Smoking Status: Never smoker Smoking Status: Never smoker alcohol intake frequency: holidays/special occasions only Substance Use Type: does not use Exam Narrative Exam Narrative: GENERAL: Well-developed patient, in mild distress. HEAD: Atraumatic. Normocephalic. EYES: Pupils equal round and reactive. Extraocular motions intact. No scleral icterus. No injection or drainage. ENT: Nose without bleeding, purulent drainage. Throat without erythema, tonsillar hypertrophy or exudate. Airway patent. NECK: Trachea midline. Non tender CARDIOVASCULAR: Regular rate and rhythm without murmurs, gallops, or rubs. RESPIRATORY: Clear to auscultation. Breath sounds equal bilaterally. No wheezes, rales, or rhonchi. GASTROINTESTINAL: Abdomen soft, non-tender, nondistended. EXTREMITIES: No edema or joint tenderness. BACK: Nontender without deformity or crepitance. No flank tenderness. NEURO: AOx3. Motor function grossly nonfocal SKIN: No rash or erythema of visible areas Initial Vital Signs Initial Vital Signs: Vital Signs Temperature 97.8 F 04/19/24 06:24 Pulse Rate 100 H 04/19/24 06:24 Respiratory Rate 18 04/19/24 06:24 Blood Pressure 142/84 H 04/19/24 06:24 Pulse Oximetry 97 04/19/24 06:24 Oxygen Delivery Method Room Air 04/19/24 06:24 Course Orders Ordered: Discontinued Medications Cyclobenzaprine HCl (Cyclobenzaprine 10 Mg Tablet) 10 mg PO NOW ONE Stop: 04/19/24 06:46 Last Admin: 04/19/24 07:25 Dose: 10 mg Documented By: RLS Dexamethasone (Dexamethasone 10 Mg/Ml Vial) 10 mg PO NOW ONE Stop: 04/19/24 07:32 Last Admin: 04/19/24 07:43 Dose: 10 mg Documented By: SHANE Hydromorphone HCl (Hydromorphone 1 Mg Inj) 1 mg IM NOW ONE Stop: 04/19/24 06:47 Last Admin: 04/19/24 07:26 Dose: 1 mg Documented By: RLS Vital Signs Vital signs: Vital Signs - 8 hr 04/19/24 06:24 Temperature 97.8 F Pulse Rate 100 H Respiratory Rate 18 Blood Pressure 142/84 H Pulse Oximetry 97 Oxygen Delivery Method Room Air MDM - Abdominal Pain Lab Data 04/19/24 06:35 04/19/24 06:35 Labs: Lab Results 04/19/24 Range/Units 06:35 WBC 6.1 (4.5-11.0) X10^3/uL RBC 4.91 (4.0-5.2) X10^6/uL Hgb 13.8 (12.0-16.0) g/dL Hct 41.2 (36-46) % MCV 84.0 (80-100) fL MCH 28.1 (26-34) PG MCHC 33.4 (30-36) % RDW 14.1 (11.6-14.8) % Plt Count 236 (150-400) X10^3/uL Neut % (Auto) 50.5 (50-75) % Lymph % (Auto) 39.0 (25-40) % Davidson % (Auto) 6.9 (3-14) % Eos % (Auto) 2.9 (2-4) % Baso % (Auto) 0.7 (0-2) % Neut # (Auto) 3100 (9516-6743) /uL Lymph # (Auto) 2400 (7383-7727) /uL Davidson # (Auto) 400 (0-900) /uL Eos # (Auto) 200 (0-450) /uL Baso # (Auto) 0 (0-100) /uL Sodium 140 (137-145) mmol/L Potassium 4.1 (3.4-5.1) mmol/L Chloride 109 H (98-107) mmol/L Carbon Dioxide 24 (22-32) mmol/L BUN 13 (7-17) mg/dL Creatinine 0.82 (0.52-1.04) mg/dL Estimated GFR > 60 (>60) mL/min BUN/Creatinine Ratio 15.9 (6-22) Glucose 105 H (70-100) mg/dL Calcium 9.2 (8.4-10.2) mg/dL Total Bilirubin 0.5 (0.2-1.3) mg/dL AST 37 H (14-36) IU/L ALT 37 H (<35) IU/L Alkaline Phosphatase 111 (38-126) U/L Total Protein 7.4 (6.3-8.2) g/dL Albumin 4.3 (3.5-5.0) g/dL Globulin 3.1 (1.7-4.1) g/dL Albumin/Globulin Ratio 1.4 (1.0-2.8) Lipase 110 (23-300) U/L MDM Narrative Medical decision making narrative: Left lower back pain, some radiation to the buttock. History of urinary tract infections noted, afebrile, sirs screen negative. Suspect musculoskeletal lumbar pain, could be referred. Labs including urinalysis still pending. She has been taking ibuprofen, we will hold/avoid IV Toradol for now. We will give P.o. cyclobenzaprine, IV Dilaudid. CT lumbar spine without contrast. Impressions: ?Multilevel spondylotic changes of the lumbar spine without acute traumatic injury. Retrolisthesis of L5 on S1 measuring 6 mm. See tele radiology report P.o. Decadron Copy of CT report given to patient with explanation of findings. Consider spine surgery consultation with Dr. William at [facility]. His contact information provided. Prescription sent for cyclobenzaprine, Medrol Dosepak, naproxen, hydrocodone. Patient instructed to take pain medications, and follow up with Dr. Clarke for surgical consultation. Return precautions discussed Discharge Plan Departure Patient Disposition: Home Clinical Impression: Low back pain, Retrolisthesis of vertebrae Instructions: DI for Low Back Pain, DI for Sciatica Activity Restrictions/Additional Instructions: Left low back pain, no injury recalled. No fever. Lumbar spine CT scan imaging showed some retrolisthesis malpositioning of the L5-S1 vertebral interface. This might be cause of your low discomfort. Consider spine surgeon consultation, contact information provided for Dr. William. Take pain medications as needed, muscle relaxants, course of steroids to see if this helps control your short-term symptoms. Follow up with Dr. Clarke. Return to this/nearest emergency department earlier for any change worsening symptoms or any concerns prior Prescriptions: New cyclobenzaprine 10 mg tablet 10 mg PO TID Qty: 20 0RF hydrocodone-acetaminophen 5-325 mg tablet 1 tab PO Q6H PRN (Reason: pain) Qty: 14 0RF methylprednisolone [Medrol (Hong)] 4 mg tablets,dose pack See Rx Instructions PO .COMPLEX Qty: 21 0RF Rx Instructions: orally per package directions; 6 tablets 1st day, 5 tablets 2nd day, 4 tablets 3rd day, 3 tablets 4th day, 2 tablets 5th day, 1 tablet on 6th day naproxen 500 mg tablet 500 mg PO BID 7 Days Qty: 14 0RF No Action polyethylene glycol 3350 [HealthyLax] 17 gram powder in packet 17 g PO DAILY Qty: 100 0RF Rx Instructions: Take 1 cap full (17g) daily x 5 days, then increase to twice daily if not titrated to 1 soft BM per day hydrocodone-acetaminophen 5-325 mg tablet 1 tab PO Q6H PRN (Reason: pain) Qty: 10 0RF cyclobenzaprine 5 mg tablet 5 mg PO TID PRN (Reason: muscle spasm) Qty: 10 0RF mupirocin 2 % ointment 1 applic topical DAILY Qty: 15 0RF Referrals: Collins William MD [Physician] - Brenda Butler MD [Primary Care Provider] - Stand Alone Forms: Patient Portal/API
--- NOTE | 2024-04-19 06:43 | DI.CT.S_ITS ---
PROCEDURE: CT LUMBAR SPINE WO CON INDICATIONS: left low back pain, left buttock pain x7 days TECHNIQUE: Noncontrast 3 mm thick sections acquired from the T12 level to the sacrum. Sagittal and coronal reformats were constructed. For radiation dose reduction, the following was used: automated exposure control. COMPARISON: None. FINDINGS: Image quality: Excellent. Bones: Slight apex left curvature of the lumbar spine centered at L3. Slight retrolisthesis of L5 on S1. No acute vertebral body compression fractures. No suspicious lytic or blastic bony lesions. No pars defects. T12-L1: No significant spinal canal or foraminal narrowing L1-L2: Small disc bulge with posterior disc osteophyte complex resulting in mild spinal canal stenosis. No significant foraminal narrowing. L2-L3: Small disc bulge with partially calcified right central disc protrusion causing moderate spinal canal stenosis. Facet arthrosis results in mild right foraminal narrowing. L3-L4: Small disc bulge with mild spinal canal stenosis. No significant foraminal narrowing. L4-L5: No significant spinal canal stenosis. Facet arthrosis results in mild osseous foraminal narrowing L5-S1: Disc height loss with large partially calcified left central disc protrusion causing moderate spinal canal stenosis. Facet arthrosis results in mild to moderate bilateral foraminal narrowing. Soft tissues: No retroperitoneal masses or hematomas. Visualized aorta is normal in caliber. IMPRESSION: 1. No fracture. 2. Calcified disc disease as above most prominent at L2-L3 and L5-S1. 3. Mild facet arthrosis and mild to moderate foraminal narrowing as above. Interpretation is concordant with overnight read. Dictated by: Sage Yeung M.D. on 04/19/2024 at 7:48 Approved by: Sage Yeung M.D. on 04/19/2024 at 7:56
[2024-04-19 06:44] LABS: Add Manual Diff / Slide Review NO; Basophils Absolute Auto 0 /uL (0-100); Basophils Percent Auto 0.7 % (0-2); Eosinophils Absolute Auto 200 /uL (0-450); Eosinophils Percent Auto 2.9 % (2-4); Hematocrit 41.2 % (36-46); Hemoglobin 13.8 g/dL (12.0-16.0); Lymphocytes Absolute Auto 2400 /uL (1100-4500); Mean Corpuscular HGB Conc 33.4 % (30-36); Mean Corpuscular Hemoglobin 28.1 PG (26-34); Monocytes Absolute Auto 400 /uL (0-900); Monocytes Percent Auto 6.9 % (3-14); Neutrophils Absolute Auto 3100 /uL (1500-7000); Neutrophils Percent Auto 50.5 % (50-75); Platelet Count 236 X10^3/uL (150-400); Red Blood Cell Count 4.91 X10^6/uL (4.0-5.2); Red Cell Distribution Width 14.1 % (11.6-14.8); White Blood Cell Count 6.1 X10^3/uL (4.5-11.0)
[2024-04-19 06:59] LABS: Alanine Aminotransferase 37 IU/L (<35); Albumin 4.3 g/dL (3.5-5.0); Albumin Globulin Ratio 1.4 (1.0-2.8); Alkaline Phosphatase 111 U/L (38-126); Aspartate Aminotransferase 37 IU/L (14-36); BUN Creatinine Ratio 15.9 (6-22); Bilirubin Total 0.5 mg/dL (0.2-1.3); Blood Urea Nitrogen 13 mg/dL (7-17); Calcium 9.2 mg/dL (8.4-10.2); Carbon Dioxide 24 mmol/L (22-32); Chloride 109 mmol/L (98-107); Estimated Glomerular Filt Rate > 60 mL/min (>60); Globulin 3.1 g/dL (1.7-4.1); Glucose 105 mg/dL (70-100); HEMOLYSIS < 15 (0-50); Lipase 110 U/L (23-300); Potassium 4.1 mmol/L (3.4-5.1); Sodium 140 mmol/L (137-145); Total Protein 7.4 g/dL (6.3-8.2)
[2024-04-19 07:00] VITALS: PULSE 79; RESP 16; O2SAT 95
[2024-04-19] MEDS: CYCLOBENZAPRINE 10 MG TABLET PO (07:25)
[2024-04-19] MEDS: HYDROMORPHONE 1 MG INJ IM (07:26)
[2024-04-19 07:30] VITALS: PULSE 79; RESP 21; O2SAT 97
[2024-04-19] MEDS: DEXAMETHASONE 10 MG/ML VIAL PO (07:43)
== END 2024-04-19 07:57 | disposition home or self-care (01) ==
PROVIDERS: Emergency Provider Emergency Medicine; PCP Family Medicine
DX: M43.17 Spondylolisthesis, lumbosacral region (principal); M54.50 Low back pain, unspecified
CPT/HCPCS: 36415; 72131; 80053; 83690; 85025; 96372; 99284; J1100; J1170

== ENCOUNTER → 2024-12-03 09:29 | Outpatient (CLI) | payer OTHER, SELFPAY ==
[2024-12-03 10:55] LABS: Hemoglobin A1C% w Est Avg Glu 5.5 % (4.0-6.0)
[2024-12-03 11:10] LABS: Cholesterol 297 mg/dL (140-199); HDL Cholesterol 44 mg/dL (40-60); LDL Cholesterol Calculated 218 mg/dL (<100); Triglycerides 176 mg/dL (35-150)
== END ==
PROVIDERS: PCP Family Medicine; Referring Provider Family Medicine; Visit Provider Family Medicine
DX: Z13.220 Encounter for screening for lipoid disorders (principal); Z13.1 Encounter for screening for diabetes mellitus
CPT/HCPCS: 36415; 80061; 83036

== ENCOUNTER → 2025-05-01 14:05 | Outpatient (CLI) | payer OTHER, SELFPAY ==
[2025-05-01 15:03] LABS: Influenza A - CEPHEID Flu A NEGATIVE (NEGATIVE); Influenza B - CEPHEID Flu B NEGATIVE (NEGATIVE)
[2025-05-01 15:23] LABS: COVID-19 CEPHEID 4-PLEX PCR POSITIVE (Negative)
== END ==
PROVIDERS: PCP Family Medicine; Visit Provider Registered Nurse
DX: R05.1 Acute cough (principal)
CPT/HCPCS: 87637

== ENCOUNTER 2025-05-06 10:57 | Emergency (ER) | payer OTHER, SELFPAY ==
[2025-05-06] VITALS (9 sets, daily range): BP systolic 111–142; BP diastolic 60–87; PULSE 82–100; RESP 13–29; TEMP 36.4; O2SAT 94–96; BMI 44.6
--- NOTE | 2025-05-06 11:15 | EKG_ITS ---
[address] [address] Test Date: 2025-05-06 Pat Name: Hortensia Genao Department: Room: Gender: Female Pile Driver: LUBNA : 1970 Requested By: Order Number: [id number] Reading MD: Herb Leonard Measurements Intervals Wendel Rate: 88 P: 43 TN: 182 QRS: -22 QRSD: 76 T: 30 QT: 382 QTc: 462 Interpretive Statements Normal sinus rhythm with sinus arrhythmia Anterior infarct , age undetermined Electronically Signed On 05-06-2025 17:11:44 PDT by Herb Leonard
--- NOTE | 2025-05-06 11:28 | DI.RAD.S_ITS ---
PROCEDURE: XR CHEST 1V INDICATIONS: chest pain TECHNIQUE: One view of the chest was acquired. COMPARISON: None. FINDINGS: Surgical changes and devices: None. Lungs and pleura: Lungs are clear. No pleural effusions or pneumothorax. Mediastinum: Mediastinal contours appear normal. Heart size is normal. Bones and chest wall: No suspicious bony lesions. Overlying soft tissues appear unremarkable. IMPRESSION: No acute pulmonary process. Dictated by: Mary Harden M.D. on 05/06/2025 at 12:26 Approved by: Mary Harden M.D. on 05/06/2025 at 12:26
[2025-05-06 11:53] LABS: Add Manual Diff / Slide Review NO; Hematocrit 44.9 % (36-46); Hemoglobin 15.1 g/dL (12.0-16.0); Lymphocytes Absolute Auto 1900 /uL (1100-4500); Mean Corpuscular HGB Conc 33.7 % (30-36); Mean Corpuscular Hemoglobin 27.6 PG (26-34); Mean Corpuscular Volume 82.0 fL (80-100); Platelet Count 270 X10^3/uL (150-400)
[2025-05-06 12:07] LABS: Alanine Aminotransferase 44 IU/L (<35); Albumin 5.0 g/dL (3.5-5.0); Albumin Globulin Ratio 1.3 (1.0-2.8); Alkaline Phosphatase 115 U/L (38-126); Blood Urea Nitrogen 15 mg/dL (7-17); Calcium 9.6 mg/dL (8.4-10.2); Carbon Dioxide 24 mmol/L (22-32); Chloride 102 mmol/L (98-107); Estimated Glomerular Filt Rate > 60 mL/min (>60); Globulin 4.0 g/dL (1.7-4.1); Glucose 113 mg/dL (70-99); Lipase 106 U/L (23-300); Magnesium 2.1 mg/dL (1.6-2.3); Potassium 4.1 mmol/L (3.4-5.1); Sodium 139 mmol/L (137-145); Total Protein 9.0 g/dL (6.3-8.2)
[2025-05-06 12:17] LABS: HEMOLYSIS < 15 (0-50); NT-proBNP (BNP-Adult 18+) < 20 pg/mL (<125)
[2025-05-06 12:18] LABS: Troponin I < 0.012 ng/mL (0.01-0.034)
--- NOTE | 2025-05-06 12:20 | ED_ITS ---
HPI - URI/Sore Throat General Chief Complaint: Upper Respiratory Symptoms Stated Complaint: Tested positive COVID, possible panic attack Time Seen by Provider: 05/06/25 11:25 Source: patient Mode of arrival: Ambulatory History of Present Illness HPI Narrative: Patient is a 55-year-old female history of obesity, diverticulitis presenting today with chest pain. She reports that she and her family have had COVID. Her had it 1st and unfortunately did not wake up 4 days ago it is presumed heart attack but he did have an active COVID infection at the time. Today she is feeling some worsening heaviness. No significant shortness of breath no radiation of pain. She has mild cough no significant fever super runny nose she generally is not feeling well but is here today more for chest pain. She has no known history of coronary artery disease. She is also grieving sudden loss of her . Related Data Previous Rx's ?Medication ?Instructions ?Recorded cyclobenzaprine 10 mg tablet 10 mg PO TID PRN muscle s pasm #90 05/03/25 tabs duloxetine 30 mg capsule,delayed 30 mg PO DAILY #90 ca ps 05/03/25 release hydroxyzine pamoate 25 mg capsule 25 mg PO Q8H PRN for anxiety #60 05/03/25 (Vistaril) caps Allergies Allergy/AdvReac Type Severity Reaction Status Date / Time meperidine (From Demerol) Allergy Mild Hallucinati Verified 05/06/25 11:05 ng Patient History Medical History (Updated 05/06/25 @ 14:15 by Iman August DO) Grief reaction Knee pain Plantar warts Acne Sleep apnea Seizure Headache Fractures (~2003) Chronic back pain (~1991) Carpal tunnel syndrome (~1990) Ankle pain Chicken pox (~1974) PCOS (polycystic ovarian syndrome) Ovarian cyst Irregular menstrual cycle Heavy menstrual period Hemorrhoid Diverticular disease Adenomatous polyp of colon First degree atrioventricular block Surgical History Anesthesia History of knee surgery S/P dilatation and curettage (~2001) Social History Smoking Status: Unknown if ever smoked Smoking Status: Unknown if ever smoked alcohol intake frequency: holidays/special occasions only Exam Initial Vital Signs Initial Vital Signs: Vital Signs Temperature 97.5 F L 05/06/25 11:05 Pulse Rate 96 H 05/06/25 11:05 Respiratory Rate 14 05/06/25 11:05 Blood Pressure 138/87 05/06/25 11:05 Pulse Oximetry 95 05/06/25 11:05 Oxygen Delivery Method Room Air 05/06/25 11:05 GENERAL: Alert well-appearing 55-year-old and in no acute distress. HEENT: Head atraumatic,EOMI, pupils reactive, face symmetric, moist mucous membranes CARDIOVASCULAR: Regular rate and rhythm without murmurs, rubs or gallops. RESPIRATORY: Breath sounds equal bilaterally, no wheezes rales or rhonchi. ABDOMEN: Soft, nontender. Normoactive bowel sounds all 4 quadrants. No guarding or rebound. EXTREMITIES: Normal range of motion, no clubbing or edema. Neurovascularly intact NEUROLOGICAL: Alert and oriented x4.Normal gait and speech. Cranial nerves II through XII grossly intact. SKIN: Warm, dry, no laceration, no petechiae, no rashes or lesions. Scores HEART Score Heart Score history: Slightly Suspicious Heart Score EKG: Normal Heart Score Age: 45-64 years old Heart Score risk factors: 1-2 risk factors Heart Score troponin: < or = to normal limit Heart Score Total: 2 Course Orders Ordered: ED Orders 05/06/25 11:09 EKG-12 Lead Stat 05/06/25 11:28 XR chest 1V Stat 05/06/25 11:30 D Dimer Stat 05/06/25 11:38 Complete Blood Count AUTO DIFF Stat Comprehensive Metabolic Panel Stat Lipase Stat Magnesium Stat NT-proBNP (BNP-Adult 18+) Stat Troponin I Stat 05/06/25 13:06 CT angio chest PE protocol Stat 05/06/25 13:30 Trop I [Troponin I] Stat Vital Signs Vital signs: Vital Signs - 8 hr 05/06/25 11:05 05/06/25 11:32 05/06/25 11:34 Temperature 97.5 F L Pulse Rate 96 H 85 Respiratory Rate 14 Blood Pressure 138/87 134/72 Pulse Oximetry 95 95 Oxygen Delivery Method Room Air 05/06/25 11:34 05/06/25 12:00 05/06/25 12:30 Temperature Pulse Rate 85 85 Respiratory Rate 17 19 Blood Pressure Pulse Oximetry 94 94 94 Oxygen Delivery Method 05/06/25 13:00 05/06/25 13:25 05/06/25 13:25 Temperature Pulse Rate 92 H 100 H Respiratory Rate 25 H 26 H Blood Pressure 142/71 H Pulse Oximetry 94 96 Oxygen Delivery Method 05/06/25 13:30 05/06/25 13:30 05/06/25 14:00 Temperature Pulse Rate 85 82 Respiratory Rate 29 H 13 Blood Pressure 132/71 Pulse Oximetry 96 95 Oxygen Delivery Method 05/06/25 14:00 Temperature Pulse Rate Respiratory Rate Blood Pressure 111/60 Pulse Oximetry Oxygen Delivery Method MDM - URI/Sore Throat Lab Data 05/06/25 11:38 05/06/25 11:38 Labs: Lab Results 05/06/25 05/06/25 05/06/25 Range/Units 11:30 11:38 13:30 WBC 6.6 (4.5-11.0) X10^3/uL RBC 5.47 H (4.0-5.2) X10^6/uL Hgb 15.1 (12.0-16.0) g/dL Hct 44.9 (36-46) % MCV 82.0 (80-100) fL MCH 27.6 (26-34) PG MCHC 33.7 (30-36) % RDW 14.2 (11.6-14.8) % Plt Count 270 (150-400) X10^3/uL Neut % (Auto) 62.7 (50-75) % Lymph % (Auto) 28.5 (25-40) % Stephens % (Auto) 6.0 (3-14) % Eos % (Auto) 1.9 L (2-4) % Baso % (Auto) 0.9 (0-2) % Neut # (Auto) 4200 (3752-9977) /uL Lymph # (Auto) 1900 (5169-1458) /uL Stephens # (Auto) 400 (0-900) /uL Eos # (Auto) 100 (0-450) /uL Baso # (Auto) 100 (0-100) /uL D-Dimer 912 H (<500) ng/ml Sodium 139 (137-145) mmol/L Potassium 4.1 (3.4-5.1) mmol/L Chloride 102 (98-107) mmol/L Carbon Dioxide 24 (22-32) mmol/L BUN 15 (7-17) mg/dL Creatinine 0.82 (0.52-1.04) mg/dL Estimated GFR > 60 (>60) mL/min BUN/Creatinine Ratio 18.3 (6-22) Glucose 113 H (70-99) mg/dL Calcium 9.6 (8.4-10.2) mg/dL Magnesium 2.1 (1.6-2.3) mg/dL Total Bilirubin 0.8 (0.2-1.3) mg/dL AST 43 H (14-36) IU/L ALT 44 H (<35) IU/L Alkaline Phosphatase 115 (38-126) U/L Troponin I < 0.012 < 0.012 (0.01-0.034) ng/mL NT-Pro-B Natriuret Pep < 20 (<125) pg/mL Total Protein 9.0 H (6.3-8.2) g/dL Albumin 5.0 (3.5-5.0) g/dL Globulin 4.0 (1.7-4.1) g/dL Albumin/Globulin Ratio 1.3 (1.0-2.8) Lipase 106 (23-300) U/L Imaging Data Chest x-ray: Radiologist's Impression: PROCEDURE: XR CHEST 1V INDICATIONS: chest pain TECHNIQUE: One view of the chest was acquired. COMPARISON: None. FINDINGS: Surgical changes and devices: None. Lungs and pleura: Lungs are clear. No pleural effusions or pneumothorax. Mediastinum: Mediastinal contours appear normal. Heart size is normal. Bones and chest wall: No suspicious bony lesions. Overlying soft tissues appear unremarkable. IMPRESSION: No acute pulmonary process. Dictated by: Mary Harden M.D. on 05/06/2025 at 12:26 Approved by: Mary Harden M.D. on 05/06/2025 at 12:26 CT scan - chest: Radiologist's Impression: PROCEDURE: CT ANGIO CHEST PE PROTOCOL INDICATIONS: high dimer chest pain covid TECHNIQUE: After the administration of intravenous contrast, 2 mm thick sections acquired from the pulmonary apices to the posterior costophrenic angles. 3-dimensional maximum intensity projection (MIP) coronal and sagittal reformats were then acquired through the thorax. For radiation dose reduction, the following was used: automated exposure control, adjustment of mA and/or kV according to patient size. COMPARISON: None. FINDINGS: Image quality: Diagnostic. Pulmonary arteries: Pulmonary arteries are normal in size, and demonstrate no intraluminal filling defects to suggest central pulmonary embolism. Lower Neck: No enlarged lymph nodes. Thyroid: No thyroid nodules which require sonographic follow up, per consensus guidelines. Axillae: No enlarged lymph nodes. Chest Wall: Unremarkable. Bones: No aggressive appearing bony lesions. Lungs and Pleura: No pneumothorax or pleural effusions. Hazy ground-glass opacities are seen throughout bilateral lung osullivan concerning for pulmonary edema versus pneumonitis secondary to atypical pneumonia. No suspicious pulmonary nodules. Heart: Heart size is normal. No pericardial effusion. Thoracic Vessels: No aortic aneurysm. Mediastinum and Mary: No enlarged lymph nodes. Esophagus: No wall thickening. No hiatal hernia. Upper Abdomen: Visualized upper abdomen solid organs and bowel loops appear normal. IMPRESSION: 1. No pulmonary embolus. No thoracic aortic aneurysm or gross dissection. 2. Hazy ground-glass opacities scattered throughout bilateral lung osullivan concerning for mild pulmonary edema versus pneumonitis versus changes related to atypical viral pneumonia. No pleural effusion or pneumothorax. 3. No mediastinal or hilar lymphadenopathy. Dictated by: Deandre Clarke M.D. on 05/06/2025 at 13:29 Approved by: Deandre Clarke M.D. on 05/06/2025 at 13:31 ECG Data Attestation: I personally reviewed and interpreted this ECG as follows: Prior ECG tracings: not available for review Interpretation: Normal sinus rhythm rate 81 NJ interval 196 QRS [address] changes similar to previous EKGs QTC is similarly prolonged from prior MDM Narrative Medical decision making narrative: MDM CC: Chest pain Complicating co-morbidities: Obesity recent of Data collected from: Patient Medical records reviewed: PCP record from 05/03/2025, started on duloxetine and hydralazine Differential considered: Acute coronary syndrome pulmonary embolism pneumonia Exam documented above, pertinent findings include: Alert pleasant 55-year-old female speaks in full sentences no wheezes rales or rhonchi no evidence of fluid overload Lab Test results independently reviewed as above. Pertinent findings: CBC no leukocytosis no anemia CMP no electrolyte abnormalities Troponin negative x2 D-dimer 912 Independently reviewed EKG as above Prolonged QTC but stable no ischemia Imaging studies independently reviewed: Chest x-ray no acute cardiopulmonary process CT angio no pulmonary, hazy ground-glass opacities scattered bilateral lung osullivan concerning for mild pulmonary edema versus pneumonitis versus atypical viral pneumonia Consultations: Treatments: None Re-evaluations: Patient remained stable Discussion: Patient 55-year-old female with current COVID infection recent loss where has been presenting today with chest pain. She has a low risk heart score up to 2- troponins. CT angio and chest x-ray overall reassuring. At this time suspect that she has a viral pneumonia and supportive care only. Without leukocytosis she does not need or require antibiotics. At this time chest pain likely combination of COVID viral pneumonia and grief. Discharge Plan Departure Patient Disposition: Home Clinical Impression: COVID-19, Atypical chest pain Instructions: DI for Atypical Chest Pain Activity Restrictions/Additional Instructions: I am so sorry for your loss. At this time her emergency department workup of imaging and blood work is overall reassuring. Please follow up with your primary care provider in the next 2-3 days Return to the ER if you should have any worsening shortness of breath chest pain or any new or worsening symptom Prescriptions: No Action cyclobenzaprine 10 mg tablet 10 mg PO TID PRN (Reason: muscle spasm) Qty: 90 0RF hydroxyzine pamoate [Vistaril] 25 mg capsule 25 mg PO Q8H PRN (Reason: for anxiety ) Qty: 60 0RF duloxetine 30 mg capsule,delayed release(DR/EC) 30 mg PO DAILY Qty: 90 0RF Referrals: Brenda Butler MD [Primary Care Provider, Family Practice] Stand Alone Forms: Patient Portal/API
--- NOTE | 2025-05-06 13:06 | DI.CT.S_ITS ---
PROCEDURE: CT ANGIO CHEST PE PROTOCOL INDICATIONS: high dimer chest pain covid TECHNIQUE: After the administration of intravenous contrast, 2 mm thick sections acquired from the pulmonary apices to the posterior costophrenic angles. 3-dimensional maximum intensity projection (MIP) coronal and sagittal reformats were then acquired through the thorax. For radiation dose reduction, the following was used: automated exposure control, adjustment of mA and/or kV according to patient size. COMPARISON: None. FINDINGS: Image quality: Diagnostic. Pulmonary arteries: Pulmonary arteries are normal in size, and demonstrate no intraluminal filling defects to suggest central pulmonary embolism. Lower Neck: No enlarged lymph nodes. Thyroid: No thyroid nodules which require sonographic follow up, per consensus guidelines. Axillae: No enlarged lymph nodes. Chest Wall: Unremarkable. Bones: No aggressive appearing bony lesions. Lungs and Pleura: No pneumothorax or pleural effusions. Hazy ground-glass opacities are seen throughout bilateral lung osullivan concerning for pulmonary edema versus pneumonitis secondary to atypical pneumonia. No suspicious pulmonary nodules. Heart: Heart size is normal. No pericardial effusion. Thoracic Vessels: No aortic aneurysm. Mediastinum and Mary: No enlarged lymph nodes. Esophagus: No wall thickening. No hiatal hernia. Upper Abdomen: Visualized upper abdomen solid organs and bowel loops appear normal. IMPRESSION: 1. No pulmonary embolus. No thoracic aortic aneurysm or gross dissection. 2. Hazy ground-glass opacities scattered throughout bilateral lung osullivan concerning for mild pulmonary edema versus pneumonitis versus changes related to atypical viral pneumonia. No pleural effusion or pneumothorax. 3. No mediastinal or hilar lymphadenopathy. Dictated by: Deandre Clarke M.D. on 05/06/2025 at 13:29 Approved by: Deandre Clarke M.D. on 05/06/2025 at 13:31
[2025-05-06 14:07] LABS: Troponin I < 0.012 ng/mL (0.01-0.034)
== END 2025-05-06 14:24 | disposition home or self-care (01) ==
PROVIDERS: Emergency Provider Emergency Medicine; PCP Family Medicine
DX: U07.1 COVID-19 (principal); R07.89 Other chest pain
CPT/HCPCS: 36415; 71045; 71275; 80053; 83690; 83735; 83880; 84484; 85025; 85379; 93005; 99283; 99284; Q9967